=== PATIENT | female | born 1965 | race African-American/Black ===

== ENCOUNTER 2019-12-26 21:21 | Emergency (ER) | payer MEDICARE, MEDICAID ==
[~2019-12-26] VITALS: Ht 167.6 cm; Wt 100.0 kg
[~2019-12-26 21:21] MED LIST: IBUP-2030 PO; PHEN300C6 PO
[2019-12-26] MEDS ORDERED: SODIUM CHLORIDE 0.9% 1,000 ML IV ONE (21:50)
[2019-12-26] MEDS ORDERED: LEVETIRACETAM 1000MG/100ML 100 ML IV ONE (22:00)
[2019-12-26 22:19] LABS: BASOPHILS % 1.4 % (0.0-2.0); EOSINOPHILS % 0.8 % (0.0-5.0); HEMATOCRIT. 34.3 % (36.0-48.0); HEMOGLOBIN. 11.7 g/dL (12.0-16.0); LYMPHOCYTES % 42.6 % (20.0-50.0); MEAN CORPUSCULAR VOLUME 99.6 fL (81.0-99.0); MEAN PLATELET VOLUME 9.5 fl (7.4-10.4); MONOCYTES % 14.4 % (2.0-8.0); NEUTROPHILS % 40.8 % (40.0-76.0); PLATELET 102 x1000/uL (130-400); RED BLOOD CELL COUNT 3.44 mill/uL (4.2-5.4); RED CELL DISTRIBUTION WIDTH 16.1 % (11.6-14.6)
[2019-12-26 22:25] LABS: CHLORIDE 91 mEq/L (98-107)
[2019-12-26 22:29] LABS: ETHANOL BLOOD < 10 mg/dL
[2019-12-26 23:50] LABS: CLARITY URINE CLEAR (CLEAR); COLOR URINE DARK YELLOW (YELLOW); KETONES URINE NEGATIVE (NEGATIVE); LEUKOCYTE ESTERASE URINE TRACE (NEGATIVE); NITRITE URINE NEGATIVE (NEGATIVE); OCCULT BLOOD URINE NEGATIVE (NEGATIVE); PROTEIN URINE NEGATIVE (NEGATIVE); SPECIFIC GRAVITY URINE 1.012 (1.005-1.030)
[2019-12-26 23:59] LABS: *COCAINE SCREEN URINE NEGATIVE (NEGATIVE); METHADONE URINE SCREEN NEGATIVE (NEGATIVE)
[2019-12-27] LABS: *AMPHETAMINES SCREEN URINE NEGATIVE (NEGATIVE); *BARBITURATES SCREEN URINE NEGATIVE (NEGATIVE); *BENZODIAZEPINES SCREEN URINE NEGATIVE (NEGATIVE); CANNABINOID URINE SCREEN NEGATIVE (NEGATIVE); OPIATES URINE SCREEN NEGATIVE (NEGATIVE); PHENCYCLIDINE URINE SCREEN NEGATIVE (NEGATIVE)
[2019-12-27] MEDS: CALCIUM CARBONATE 1250MG TABLET (500MG ELEMENTAL CALCIUM) PO SCH ×2 (00:09→06:49)
[2019-12-27 07:54] VITALS: BP 122/87
[2019-12-27] MEDS ORDERED: ACETAMINOPHEN 650MG/20.3ML UDC GT PRN (08:45)
[2019-12-27] MEDS ORDERED: ACETAMINOPHEN 325MG TABLET PO PRN ×2 (08:45)
[2019-12-27] MEDS ORDERED: GUAIFENESIN 200MG/10ML SUGAR FREE UDC PO PRN (08:45)
[2019-12-27] MEDS ORDERED: DOCUSATE SODIUM 100MG CAPSULE PO PRN (08:45)
[2019-12-27] MEDS ORDERED: DIPHENHYDRAMINE 50MG/ML VIAL IV PRN (08:45)
[2019-12-27] MEDS ORDERED: CLONIDINE 0.1MG TABLET PO PRN (08:45)
[2019-12-27] MEDS ORDERED: MAGNESIUM/ALUMINUM HYDROXIDE/SIMETHICONE 30ML UDC PO PRN (08:45)
[2019-12-27] MEDS ORDERED: NA PHOS,M-B/NA PHOS,DI-BA ENEMA 118ML PR PRN (09:00)
[2019-12-27] MEDS ORDERED: LEVETIRACETAM 500MG PREMIX 100 ML IV SCH (09:00)
== END 2019-12-27 08:10 | disposition short-term general hospital (02) ==
LOC: ER 21:21 → CANBEDREQ 12-27 05:55 → ER 12-27 08:10
DX: R56.9 Unspecified convulsions (principal); R53.1 Weakness; J44.9 Chronic obstructive pulmonary disease, unspecified; Z88.0 Allergy status to penicillin; Z79.899 Other long term (current) drug therapy
CPT/HCPCS: 36415; 70450; 80053; 80305; 80320; 81003; 82962; 85025; 93005; 96365; 99285; J1953; J7030; G0480

== ENCOUNTER 2020-05-01 11:01 | Emergency (ER) | payer MEDICARE, MEDICAID ==
[~2020-05-01] VITALS: Ht 170.2 cm; Wt 82.0 kg
[2020-05-01 12:40] LABS: BASOPHILS % 0.5 % (0.0-2.0); HEMATOCRIT. 27.6 % (36.0-48.0); HEMOGLOBIN. 9.4 g/dL (12.0-16.0); LYMPHOCYTES % 14.4 % (20.0-50.0); MEAN CORPUSCULAR HEMOGLOBIN 31.6 pg (28.0-32.0); MEAN CORPUSCULAR VOLUME 92.6 fL (81.0-99.0); MEAN PLATELET VOLUME 8.4 fl (7.4-10.4); MONOCYTES % 11.8 % (2.0-8.0); NEUTROPHILS % 73.3 % (40.0-76.0); PLATELET 87 x1000/uL (130-400); RED BLOOD CELL COUNT 2.97 mill/uL (4.2-5.4); RED CELL DISTRIBUTION WIDTH 16.4 % (11.6-14.6)
[2020-05-01 12:48] LABS: CHLORIDE 88 mEq/L (98-107)
[2020-05-01] MEDS ORDERED: POTASSIUM CHLORIDE 20MEQ TABLET SR PO ONE (13:45)
[2020-05-01] MEDS ORDERED: SODIUM CHLORIDE 0.9% 1,000 ML IV ONE (14:00)
[2020-05-01] MEDS ORDERED: PHENYTOIN SODIUM EXTENDED 100MG CAPSULE PO ONE (14:00)
[2020-05-01] MEDS ORDERED: MAGNESIUM/ALUMINUM HYDROXIDE/SIMETHICONE 30ML UDC PO STA (16:10)
[2020-05-01] MEDS ORDERED: VISCOUS LIDOCAINE 2% 15 ML UDC PO STA (16:10)
[2020-05-01] MEDS ORDERED: ONDANSETRON 4MG ODT PO STA (16:10)
[2020-05-01] MEDS ORDERED: FAMOTIDINE 20MG TABLET PO ONE (16:15)
[2020-05-01 16:25] LABS: CLARITY URINE CLEAR (CLEAR); COLOR URINE DK YELLOW (YELLOW); KETONES URINE 1+ (NEGATIVE); LEUKOCYTE ESTERASE URINE 2+ (NEGATIVE); NITRITE URINE NEGATIVE (NEGATIVE); OCCULT BLOOD URINE 3+ (NEGATIVE); PH URINE 8.5 (4.5-8.0); PROTEIN URINE NEGATIVE (NEGATIVE); SPECIFIC GRAVITY URINE 1.017 (1.005-1.030)
[2020-05-01] MEDS ORDERED: CEFTRIAXONE 1 G PREMIX 50 ML IV ONE (17:15)
[2020-05-01] MEDS ORDERED: IOHEXOL-300 100 ML BOTTLE ONE (18:03)
[2020-05-01] MEDS ORDERED: LEVETIRACETAM 1000MG PREMIX 100 ML IV SCH (18:30)
[2020-05-01] MEDS ORDERED: MORPHINE SULFATE 4 MG/ML CPJ (NOT FOR IM USE) IV PRN (21:15)
[2020-05-02 01:15] VITALS: BP 100/64
== END 2020-05-02 01:32 | disposition home or self-care (01) ==
LOC: ER 11:06
DX: U07.1 COVID-19 (principal); G40.909 Epilepsy, unspecified, not intractable, without status epilepticus; E87.6 Hypokalemia; E87.1 Hypo-osmolality and hyponatremia; N39.0 Urinary tract infection, site not specified; D61.818 Other pancytopenia; R19.7 Diarrhea, unspecified; R74.01 Elevation of levels of liver transaminase levels; K76.0 Fatty (change of) liver, not elsewhere classified
CPT/HCPCS: 36415; 74177; 80053; 80185; 81003; 83605; 85025; 87426; 93005; 96361; 96365; 96367; 96375; 99285; J0696; J1953; J2270; J7030; Q0162; Q9967

== ENCOUNTER 2022-05-04 13:43 | Inpatient (IN) | payer MEDICARE, MEDICAID ==
[~2022-05-04] VITALS: Ht 170.2 cm; Wt 163.3 kg
[2022-05-04] MEDS ORDERED: keppra (13:47)
[2022-05-04] MEDS ORDERED: ONDANSETRON HCL 4MG/2ML INJ IV STA ×2 (14:58→16:19)
[2022-05-04] MEDS ORDERED: MORPHINE SULFATE 4 MG/ML CPJ (NOT FOR IM USE) IV STA ×2 (14:58→16:19)
[2022-05-04] MEDS ORDERED: ASPIRIN 81MG TABLET PO ONE (15:00)
[2022-05-04] MEDS ORDERED: NITROGLYCERIN 0.4MG TABLET SL SL PRN (15:00)
[2022-05-04 15:22] LABS: D-DIMER < 0.47 mg/L FEU (<0.50); INR 1.1; PARTIAL THROMBOPLASTIN TIME < 21.0 sec (23.4-31.0)
[2022-05-04 15:29] LABS: BASOPHILS % 0.5 % (0.0-2.0); CHLORIDE 96 mEq/L (98-107); EOSINOPHILS % 0.3 % (0.0-5.0); HEMATOCRIT. 40.7 % (36.0-48.0); HEMOGLOBIN. 13.5 g/dL (12.0-16.0); LYMPHOCYTES % 39.9 % (20.0-50.0); MEAN CORPUSCULAR HEMOGLOBIN 30.8 pg (28.0-32.0); MEAN CORPUSCULAR VOLUME 92.9 fL (81.0-99.0); MEAN PLATELET VOLUME 7.7 fl (7.4-10.4); NEUTROPHILS % 47.3 % (40.0-76.0); PLATELET 173 x1000/uL (130-400); RED BLOOD CELL COUNT 4.38 mill/uL (4.2-5.4); RED CELL DISTRIBUTION WIDTH 19.5 % (11.6-14.6)
[2022-05-04] MEDS ORDERED: POTASSIUM CHLORIDE 20MEQ TABLET SR PO ONE (16:30)
[2022-05-04 20:00] VITALS: BP 108/67
[2022-05-04] MEDS ORDERED: ACETAMINOPHEN 325MG TABLET PO PRN (23:45)
[2022-05-04] MEDS: TRAMADOL 50MG TABLET PO PRN (23:51)
[2022-05-05] VITALS (7 sets, daily range): BP systolic 109–129; BP diastolic 59–90
[2022-05-05] MEDS ORDERED: MAGNESIUM/ALUMINUM HYDROXIDE/SIMETHICONE 30ML UDC PO NR (01:00)
[2022-05-05 06:31] LABS: HEMATOCRIT. 38.2 % (36.0-48.0); HEMOGLOBIN. 12.7 g/dL (12.0-16.0); MEAN CORPUSCULAR HEMOGLOBIN 30.8 pg (28.0-32.0); MEAN CORPUSCULAR VOLUME 92.7 fL (81.0-99.0); MEAN PLATELET VOLUME 7.9 fl (7.4-10.4); PLATELET 157 x1000/uL (130-400); RED BLOOD CELL COUNT 4.12 mill/uL (4.2-5.4); RED CELL DISTRIBUTION WIDTH 19.1 % (11.6-14.6)
[2022-05-05] MEDS: GABAPENTIN 300MG CAPSULE PO SCH ×3 (06:54→20:35)
[2022-05-05] MEDS ORDERED: POTASSIUM CHLORIDE INJ 40 MEQ in DEXT 5% WATER 250 ML IV ONE (07:45)
[2022-05-05] MEDS ORDERED: POTASSIUM CHLORIDE 20MEQ TABLET SR PO SCH (08:00)
[2022-05-05] MEDS ORDERED: ENOXAPARIN 30MG/0.3ML SYR SUBCUT SCH (09:00)
[2022-05-05] MEDS: LEVETIRACETAM 500MG TABLET PO SCH ×2 (09:13→20:35)
[2022-05-05] MEDS: KCL 20MEQ/100ML X 2 FOR TOTAL KCL 40MEQ/200ML IV SCH ×2 (10:47→12:56)
[2022-05-05] MEDS ORDERED: NALOXONE HCL 0.4MG/ML VIAL IV PRN (11:15)
[2022-05-05] MEDS: TRAMADOL 50MG TABLET PO PRN (12:56)
[2022-05-05 13:26] LABS: NUCLEATED RED BLOOD CELLS 1 /100 WBC; PLATELET ESTIMATE NORMAL
[2022-05-05] MEDS ORDERED: MAGNESIUM 4 G PREMIX 100 ML IV SCH (15:00)
[2022-05-05] MEDS: ENOXAPARIN 40MG/0.4ML SYR SUBCUT SCH (20:36)
[2022-05-06] VITALS: BP 121/79
[2022-05-06 01:22] LABS: CLARITY URINE CLOUDY (CLEAR); COLOR URINE DARK YELLOW (YELLOW); KETONES URINE 1+ (NEGATIVE); LEUKOCYTE ESTERASE URINE TRACE (NEGATIVE); NITRITE URINE NEGATIVE (NEGATIVE); OCCULT BLOOD URINE NEGATIVE (NEGATIVE); PROTEIN URINE 1+ (NEGATIVE); SPECIFIC GRAVITY URINE 1.027 (1.005-1.030)
[2022-05-06 04:00] VITALS: BP 138/87
[2022-05-06] MEDS: GABAPENTIN 300MG CAPSULE PO SCH ×3 (06:00→21:44)
[2022-05-06 06:46] LABS: HEMATOCRIT. 36.7 % (36.0-48.0); HEMOGLOBIN. 12.2 g/dL (12.0-16.0); MEAN CORPUSCULAR HEMOGLOBIN 30.8 pg (28.0-32.0); MEAN CORPUSCULAR VOLUME 93.1 fL (81.0-99.0); MEAN PLATELET VOLUME 8.3 fl (7.4-10.4); PLATELET 140 x1000/uL (130-400); RED BLOOD CELL COUNT 3.94 mill/uL (4.2-5.4); RED CELL DISTRIBUTION WIDTH 18.9 % (11.6-14.6)
[2022-05-06 07:58] LABS: CHLORIDE 94 mEq/L (98-107)
[2022-05-06 08:00] VITALS: BP 130/84
[2022-05-06] MEDS: LEVETIRACETAM 500MG TABLET PO SCH ×2 (09:33→21:44)
[2022-05-06] MEDS: ENOXAPARIN 40MG/0.4ML SYR SUBCUT SCH ×2 (09:33→21:45)
[2022-05-06] MEDS: TRAMADOL 50MG TABLET PO PRN ×2 (11:02→18:44)
[2022-05-06 12:00] VITALS: BP 128/71
[2022-05-06] MEDS ORDERED: POTASSIUM CHLORIDE 20MEQ TABLET SR PO NR (12:30)
[2022-05-06 13:33] LABS: NUCLEATED RED BLOOD CELLS 1 /100 WBC; PLATELET ESTIMATE NORMAL
[2022-05-06] MEDS ORDERED: CLONIDINE 0.1MG TABLET PO PRN (15:15)
[2022-05-06 16:00] VITALS: BP 127/74
[2022-05-06 20:00] VITALS: BP 125/78
[2022-05-07] VITALS: BP 124/83
[2022-05-07] MEDS: TRAMADOL 50MG TABLET PO PRN ×2 (02:20→10:50)
[2022-05-07 04:00] VITALS: BP 124/83
[2022-05-07] MEDS: GABAPENTIN 300MG CAPSULE PO SCH ×3 (06:07→21:19)
[2022-05-07 06:33] LABS: HEMATOCRIT. 34.9 % (36.0-48.0); MEAN CORPUSCULAR HEMOGLOBIN 32.3 pg (28.0-32.0); MEAN CORPUSCULAR VOLUME 93.7 fL (81.0-99.0); MEAN PLATELET VOLUME 7.9 fl (7.4-10.4); PLATELET 140 x1000/uL (130-400); RED BLOOD CELL COUNT 3.73 mill/uL (4.2-5.4); RED CELL DISTRIBUTION WIDTH 19.2 % (11.6-14.6)
[2022-05-07 07:07] LABS: CHLORIDE 98 mEq/L (98-107)
[2022-05-07 08:00] VITALS: BP 112/82
[2022-05-07] MEDS: LEVETIRACETAM 500MG TABLET PO SCH ×2 (08:44→21:19)
[2022-05-07] MEDS: ENOXAPARIN 40MG/0.4ML SYR SUBCUT SCH ×2 (08:45→21:20)
[2022-05-07] MEDS ORDERED: POTASSIUM CHLORIDE 20MEQ/PACKET PO NR ×2 (11:00→17:00)
[2022-05-07 12:00] VITALS: BP 138/88
[2022-05-07 12:48] LABS: *AMPHETAMINES SCREEN URINE NEGATIVE (NEGATIVE); *BARBITURATES SCREEN URINE NEGATIVE (NEGATIVE); *BENZODIAZEPINES SCREEN URINE NEGATIVE (NEGATIVE); *COCAINE SCREEN URINE NEGATIVE (NEGATIVE); CANNABINOID URINE SCREEN NEGATIVE (NEGATIVE); METHADONE URINE SCREEN NEGATIVE (NEGATIVE); OPIATES URINE SCREEN NEGATIVE (NEGATIVE); PHENCYCLIDINE URINE SCREEN NEGATIVE (NEGATIVE)
[2022-05-07 14:13] LABS: PLATELET ESTIMATE NORMAL
[2022-05-07 16:00] VITALS: BP 126/90
[2022-05-07 20:00] VITALS: BP 136/85
[2022-05-08] VITALS: BP 115/78
[2022-05-08 04:00] VITALS: BP 114/87
[2022-05-08] MEDS: GABAPENTIN 300MG CAPSULE PO SCH ×3 (05:47→21:18)
[2022-05-08 08:00] VITALS: BP 129/87
[2022-05-08] MEDS: LEVETIRACETAM 500MG TABLET PO SCH ×2 (09:06→21:18)
[2022-05-08] MEDS: ENOXAPARIN 40MG/0.4ML SYR SUBCUT SCH ×2 (09:07→21:18)
[2022-05-08] MEDS ORDERED: POTASSIUM CHLORIDE 20MEQ/PACKET PO NR ×2 (11:30→17:00)
[2022-05-08 12:00] VITALS: BP 130/75
[2022-05-08] MEDS: METOPROLOL TARTRATE 25MG TABLET PO SCH ×2 (12:05→21:18)
[2022-05-08] MEDS ORDERED: REGADENOSON 0.4 MG/5 ML IV NR (13:45)
[2022-05-08 16:00] VITALS: BP 115/78
[2022-05-08 16:54] LABS: CHLORIDE 104 mEq/L (98-107)
[2022-05-08 17:10] LABS: HEMATOCRIT. 36.8 % (36.0-48.0); HEMOGLOBIN. 12.1 g/dL (12.0-16.0); MEAN CORPUSCULAR HEMOGLOBIN 31.5 pg (28.0-32.0); MEAN CORPUSCULAR VOLUME 96.2 fL (81.0-99.0); MEAN PLATELET VOLUME 8.8 fl (7.4-10.4); PLATELET 139 x1000/uL (130-400); RED BLOOD CELL COUNT 3.83 mill/uL (4.2-5.4); RED CELL DISTRIBUTION WIDTH 20.2 % (11.6-14.6)
[2022-05-08 17:12] LABS: T4 FREE 1.18 ng/dL (0.76-1.46)
[2022-05-08] MEDS: TRAMADOL 50MG TABLET PO PRN (17:36)
[2022-05-08 20:00] VITALS: BP 143/70
[2022-05-08 22:55] LABS: PLATELET ESTIMATE NORMAL
[2022-05-09] VITALS: BP 124/59
[2022-05-09 04:00] VITALS: BP 105/60
[2022-05-09] MEDS: TRAMADOL 50MG TABLET PO PRN ×2 (04:35→12:37)
[2022-05-09] MEDS: GABAPENTIN 300MG CAPSULE PO SCH ×2 (05:29→13:36)
[2022-05-09 08:30] VITALS: BP 149/85
[2022-05-09] MEDS: METOPROLOL TARTRATE 25MG TABLET PO SCH (09:39)
[2022-05-09] MEDS: LEVETIRACETAM 500MG TABLET PO SCH (09:39)
[2022-05-09] MEDS: ENOXAPARIN 40MG/0.4ML SYR SUBCUT SCH (09:40)
[2022-05-09 12:30] VITALS: BP 129/93
[2022-05-09 13:15] LABS: HEMATOCRIT. 35.7 % (36.0-48.0); HEMOGLOBIN. 11.9 g/dL (12.0-16.0); MEAN CORPUSCULAR HEMOGLOBIN 31.4 pg (28.0-32.0); MEAN CORPUSCULAR VOLUME 94.2 fL (81.0-99.0); MEAN PLATELET VOLUME 7.9 fl (7.4-10.4); PLATELET 169 x1000/uL (130-400); RED BLOOD CELL COUNT 3.79 mill/uL (4.2-5.4); RED CELL DISTRIBUTION WIDTH 19.6 % (11.6-14.6)
[2022-05-09 13:57] LABS: NUCLEATED RED BLOOD CELLS 2 /100 WBC; PLATELET ESTIMATE NORMAL
[2022-05-09] MEDS ORDERED: METOPROLOL TARTRATE 25MG TABLET PO SCH (14:00)
[2022-05-09 14:40] LABS: CHLORIDE 105 mEq/L (98-107)
[2022-05-09] MEDS ORDERED: TRAM50TA3 PO (15:53)
[2022-05-09] MEDS ORDERED: METO25TA6 PO (15:53)
[2022-05-09 16:01] VITALS: BP 128/77
[2022-05-09 16:30] VITALS: BP 133/89
== END 2022-05-09 17:40 | disposition home or self-care (01) | DRG 206 ==
LOC: ER 13:43 → 7EST 18:19 → EDBEDREQTM 18:26 → EDBEDREQ 18:26 → ENRESERV 18:59
PROVIDERS: ADMIT Internal Medicine; ATTEND Internal Medicine
DX: M94.0 Chondrocostal junction syndrome [Tietze] (principal); Z68.43 Body mass index [BMI] 50.0-59.9, adult; J44.9 Chronic obstructive pulmonary disease, unspecified; G40.909 Epilepsy, unspecified, not intractable, without status epilepticus; Z20.822 Contact with and (suspected) exposure to COVID-19; E66.01 Morbid (severe) obesity due to excess calories; I10 Essential (primary) hypertension; E87.6 Hypokalemia; R00.2 Palpitations; E83.42 Hypomagnesemia; M19.90 Unspecified osteoarthritis, unspecified site; R60.1 Generalized edema; Z88.0 Allergy status to penicillin; Z79.899 Other long term (current) drug therapy
CPT/HCPCS: 36415; 71045; 80048; 80053; 80305; 81003; 83735; 83880; 84100; 84132; 84439; 84443; 84481; 84484; 85025; 85379; 87426; 93005; 93306; 93970; 97161; 99291; J1650; J2270; J2405; J3475; J3480

== ENCOUNTER 2022-10-31 01:45 | Emergency (ER) | payer MEDICARE, MEDICAID ==
[~2022-10-31] VITALS: Ht 172.7 cm; Wt 136.0 kg
[~2022-10-31 01:45] MED LIST changes: +METO25TA6 PO; +TRAM50TA3 PO; +keppra
[2022-10-31 03:11] LABS: BASOPHILS % 0.7 % (0.0-2.0); EOSINOPHILS % 5.2 % (0.0-5.0); HEMOGLOBIN. 13.5 g/dL (12.0-16.0); LYMPHOCYTES % 42.4 % (20.0-50.0); MEAN CORPUSCULAR HEMOGLOBIN 29.3 pg (28.0-32.0); MEAN CORPUSCULAR VOLUME 86.8 fL (81.0-99.0); MEAN PLATELET VOLUME 8.2 fl (7.4-10.4); NEUTROPHILS % 40.7 % (40.0-76.0); PLATELET 186 x1000/uL (130-400); RED BLOOD CELL COUNT 4.61 mill/uL (4.2-5.4); RED CELL DISTRIBUTION WIDTH 15.4 % (11.6-14.6)
[2022-10-31 03:16] LABS: CHLORIDE 94 mEq/L (98-107)
[2022-10-31] MEDS ORDERED: POTASSIUM CHLORIDE 20MEQ TABLET SR PO ONE (05:15)
[2022-10-31] MEDS ORDERED: HYDROCODONE/ACETAMINOPHEN 5/325MG TABLET PO ONE (05:15)
[2022-10-31] MEDS ORDERED: HYDR-4001 MT (06:34)
[2022-10-31 08:37] VITALS: BP 142/78
== END 2022-10-31 08:39 | disposition home or self-care (01) ==
LOC: ER 02:16
DX: R07.89 Other chest pain (principal); I10 Essential (primary) hypertension; E87.6 Hypokalemia; Z86.59 Personal history of other mental and behavioral disorders; Z88.0 Allergy status to penicillin
CPT/HCPCS: 36415; 71045; 80053; 84484; 85025; 93005; 99285